=== PATIENT | male | born 2000 | race Caucasian/White ===

== ENCOUNTER 2021-04-08 10:15 | Emergency (ER) | payer SELFPAY ==
[~2021-04-08] VITALS: Ht 195.6 cm; Wt 113.6 kg
[2021-04-08 10:36] VITALS: TEMP 98.4
[2021-04-08 12:22] VITALS: BP 133/83; PULSE 70
== END 2021-04-08 12:25 | disposition home or self-care (01) ==
LOC: COL.ER 10:15
DX: J39.9 Disease of upper respiratory tract, unspecified (principal); Z20.822 Contact with and (suspected) exposure to COVID-19